=== PATIENT | male | born 1940 | race Caucasian/White ===

== ENCOUNTER 2017-01-29 17:27 | Inpatient (IN) | payer MEDICARE, OTHER ==
[~2017-01-29] VITALS: Ht 185.4 cm; Wt 67.5 kg
[~2017-01-29 17:27] MED LIST: DIGO0.25 PO; LACT10SO48 PO; LINA290C PO; LIPI20TA PO; MIRTA15 PO; NEXI40CA PO; NIFE1TAB85 PO; OLAN2.5 PO; VITA500S3 PO
[2017-01-29 17:34] VITALS: BP 176/84; TEMP 97.8; O2SAT 98
--- NOTE | 2017-01-29 17:45 | PD ---
HPI Chief Complaint: psychiatric evaluation Time Seen by Provider: 17:31 Travel History International Travel<30 days: No Contact w/Intl Traveler<30days: No History of Present Illness HPI 76-year-old male presents to the emergency department via EMS. Apparently, the patient was placed in a nursing facility today. Upon being in the facility for approximately 20 minutes, he became agitated and aggressive. He was then sent for psychiatric evaluation. Patient has a DCF investigative worker at bedside. According to her, the patient has been violent at home and has been waving a gun around and his is afraid of him. Therefore, they got him placed in a facility today. However, upon arrival to the facility, he had another violent outburst. He has history of dementia according to the account collector. The patient himself has no complaints other than complaining of bilateral ankle swelling that has been ongoing for 2-1/2 months. When I asked him if he came from facility, he states that he lives at home. He does answer my questions appropriately and is alert and oriented to person, place, time. He denies any fevers or chills. No headache. No chest pain or shortness of breath. No abdominal pain. No nausea, vomiting, diarrhea. Take that when he wakes up in the morning, his ankle swelling is gone. However, after he has been on his feet all day, he notices the swelling has returned. No exacerbating or alleviating factors. PFSH Past Medical History Cancer: No (Patient denies) Cerebrovascular Accident: Yes Coronary Artery Disease: Yes Endocrine: No Gastrointestinal Disorders: Yes (GERD, ULCER HX, NAUSEA) Genitourinary: Yes (BLADDER "PUMP"--MUST TURN OFF DEVICE PRIOR TO CATHETERIZATION) Hepatitis: No Hiatal Hernia: Yes (WITH REPAIR X 2) Hypertension: Yes Immune Disorder: No Musculoskeletal: Yes (ARTHRITIS) Neurologic: Yes (RICARDO CARPAL TUNNEL SYNDROME, PERIPHERAL NEUROPATHY) Reproductive: No Respiratory: Yes Thyroid Disease: No Past Surgical History AICD: No Cardiac Surgery: Yes (CABG 1997, PACEMAKER 2001,2008) Eye Surgery: Yes (RICARDO. CATARACT SX) Genitourinary Surgery: Yes (BLADDER "PUMP") Joint Replacement: No Neurologic Surgery: Yes (LUMER LAMINECTOMY) Oral Surgery: Yes (EXCISION OF BENIGN ESOPHAGEAL TUMOR) Pacemaker: Yes Thoracic Surgery: No Other Surgery: Yes Social History Alcohol Use: No Tobacco Use: Yes (occ) Substance Use: No Allergies-Medications (Allergen,Severity, Reaction): Coded Allergies: amiodarone (Verified Adverse Reaction, Intermediate, Dizziness, 01/29/17) ibuprofen (Verified Adverse Reaction, Intermediate, TOLD NOT TO TAKE BY PROFESSIONAL ADVISOR, 01/29/17) Reported Meds & Prescriptions Reported Meds & Active Scripts Active Reported Mirtazapine 15 Mg Tab 15 Mg PO HS Eliquis (Apixaban) 2.5 Mg Tab 2.5 Mg PO BID Zantac (Ranitidine HCl) 300 Mg Tab 300 Mg PO DAILY Ziprasidone 40 Mg Cap 40 Mg PO BID Xanax (Alprazolam) 0.5 Mg Tab 0.5 Mg PO BID PRN Atorvastatin (Atorvastatin Calcium) 20 Mg Tab 20 Mg PO HS Losartan (Losartan Potassium) 25 Mg Tab 25 Mg PO DAILY Metoprolol Tartrate 50 Mg Tab 50 Mg PO DAILY Review of Systems Except as stated in HPI: all other systems reviewed are Neg Physical Exam Narrative GENERAL: Well-nourished, well-developed male patient, ambulatory. Afebrile. Patient is alert and oriented to person, place, time. SKIN: Focused skin assessment warm/dry. HEAD: Normocephalic. Atraumatic. EYES: No scleral icterus. No injection or drainage. NECK: Supple, trachea midline. No JVD or lymphadenopathy. CARDIOVASCULAR: Regular rate and rhythm without murmurs, gallops, or rubs. Bilateral radial and pedal pulses are 2+. RESPIRATORY: Breath sounds equal bilaterally. No accessory muscle use. Lungs sounds are clear to auscultation. GASTROINTESTINAL: Abdomen soft, non-tender, nondistended. MUSCULOSKELETAL: No cyanosis. Patient has 1-2+ edema to the bilateral ankles. He denies any associated pain. BACK: Nontender without obvious deformity. No CVA tenderness. Data Data Last Documented VS Vital Signs Date Time Temp Pulse Resp B/P (MAP) Pulse Ox O2 Delivery O2 Flow Rate FiO2 01/29/17 18:57 71 18 165/74 (104) 97 Room Air 01/29/17 17:34 97.8 Orders Orders Complete Blood Count With Diff (01/29/17 17:43) Comprehensive Metabolic Panel (01/29/17 17:43) Urinalysis - C+S If Indicated (01/29/17 17:43) Psych Screen (01/29/17 17:43) Drug Screen, Random Urine (01/29/17 17:43) Alcohol (Ethanol) (01/29/17 17:43) B-Type Natriuretic Peptide (01/29/17 17:43) Chest, Single Ap (01/29/17 ) Blood Culture (01/29/17 20:40) Azithromycin (Zithromax) (01/29/17 20:45) Labs Laboratory Tests Test 01/29/17 17:10 01/29/17 17:50 Urine Color LIGHT-YELLOW Urine Turbidity CLEAR Urine pH 6.0 Urine Specific [place] 1.007 Urine Protein 30 mg/dL Urine Glucose (UA) NEG mg/dL Urine Ketones NEG mg/dL Urine Occult Blood NEG Urine Nitrite NEG Urine Bilirubin NEG Urine Urobilinogen LESS THAN 2.0 MG/DL Urine Leukocyte Esterase NEG Urine RBC 1 /hpf Urine WBC 1 /hpf Urine Hyaline Casts 3 /lpf Microscopic Urinalysis Comment CULT NOT INDICATED Urine Opiates Screen NEG Urine Barbiturates Screen NEG Urine Amphetamines Screen NEG Urine Benzodiazepines Screen POS Urine Cocaine Screen NEG Urine Cannabinoids Screen NEG White Blood Count 8.2 TH/MM3 Red Blood Count 3.46 MIL/MM3 Hemoglobin 10.9 GM/DL Hematocrit 32.8 % Mean Corpuscular Volume 94.8 FL Mean Corpuscular Hemoglobin 31.5 PG Mean Corpuscular Hemoglobin Concent 33.2 % Red Cell Distribution Width 14.6 % Platelet Count 135 TH/MM3 Mean Platelet Volume 8.9 FL Neutrophils (%) (Auto) 62.5 % Lymphocytes (%) (Auto) 21.0 % Monocytes (%) (Auto) 9.1 % Eosinophils (%) (Auto) 6.5 % Basophils (%) (Auto) 0.9 % Neutrophils # (Auto) 5.1 TH/MM3 Lymphocytes # (Auto) 1.7 TH/MM3 Monocytes # (Auto) 0.8 TH/MM3 Eosinophils # (Auto) 0.5 TH/MM3 Basophils # (Auto) 0.1 TH/MM3 CBC Comment DIFF FINAL Differential Comment Blood Urea Nitrogen 32 MG/DL Creatinine 1.95 MG/DL Random Glucose 95 MG/DL Total Protein 8.5 GM/DL Albumin 4.4 GM/DL Calcium Level 8.9 MG/DL Alkaline Phosphatase 120 U/L Aspartate Amino Transf (AST/SGOT) 20 U/L Alanine Aminotransferase (ALT/SGPT) 24 U/L Total Bilirubin 1.2 MG/DL Sodium Level 136 MEQ/L Potassium Level 4.4 MEQ/L Chloride Level 103 MEQ/L Carbon Dioxide Level 23.6 MEQ/L Anion Gap 9 MEQ/L Estimat Glomerular Filtration Rate 34 ML/MIN B-Type Natriuretic Peptide 522 PG/ML Ethyl Alcohol Level LESS THAN 3 MG/DL MDM Medical Decision Making Medical Screen Exam Complete: Yes Emergency Medical Condition: Yes Medical Record Reviewed: Yes Interpretation(s) Last Impressions Chest X-Ray 01/29/17 0000 Signed Impressions: Service Date/Time: Sunday, January 29, 2017 18:20 - CONCLUSION: 1. Patchy infiltrates in medial right lower lung. 2. 6 mm nodule in the right upper lung. Recommend requesting an archival retrieval of prior chest x-ray in 2011 to see whether this is a new or old finding. Sascha Johnson MD Differential Diagnosis Dementia versus depression versus benign edema versus electrolyte abnormality versus UTI Narrative Course 76-year-old male presents to the emergency department via EMS after being in a new nursing facility for 20 minutes and having a violent outburst. The patient believes he is here because his ankles have been swelling intermittently for the past 2-1/2 months. He appears well on my exam. His account collector at bedside states that his is afraid of him. CBC, CMP, urine drug screen, alcohol level, BNP, chest x-ray, UA are ordered and pending. CBC shows no acute abnormality. CMP shows elevated BUN and creatinine of 32/ 1.95.. BNP is 522. Alcohol level is less than 3. UDS is positive for benzodiazepine. UA is negative for acute infection. Chest x-ray shows patchy infiltrates the medial right lower lung, 6 mm nodule in the right upper lung. I discussed the case with attending physician, Dr. Maloney. Blood cultures 2 are ordered. Patient is given azithromycin 500 mg by mouth. Patient is medically cleared for psychiatric screening and disposition. Patient will need prescription for azithromycin upon discharge. Diagnosis Primary Impression: Dementia with behavioral disturbance Qualified Codes: F03.91 - Unspecified dementia with behavioral disturbance Additional Impression: Pneumonia Qualified Codes: J18.1 - Lobar pneumonia, unspecified organism Referrals: Primary Care Physician call for appointment Condition: Stable Sapna Og ELBERT Jan 29, 2017 17:45
[2017-01-29 18:36] LABS: AUTOMATED NEUTROPHIL # 5.1 TH/MM3 (1.8-7.7); BASOPHIL # 0.1 TH/MM3 (0-0.2); BASOPHIL % 0.9 % (0.0-2.0); EOSINOPHIL # 0.5 TH/MM3 (0-0.4); EOSINOPHIL % 6.5 % (0.0-4.0); HEMATOCRIT 32.8 % (39.0-51.0); HEMO FLAGS DIFF FINAL; LYMPHOCYTE # 1.7 TH/MM3 (1.0-4.8); MEAN CELL VOLUME 94.8 FL (80.0-100.0); MEAN CORPUSCULAR HEMOGLOBIN 31.5 PG (27.0-34.0); MEAN CORPUSCULAR HGB CONC 33.2 % (32.0-36.0); MONO % 9.1 % (0.0-8.0); NEUT % 62.5 % (16.0-70.0); PLATELET COUNT 135 TH/MM3 (150-450); RED BLOOD COUNT 3.46 MIL/MM3 (4.50-5.90); RED CELL DISTRIBUTION WIDTH 14.6 % (11.6-17.2); WHITE BLOOD COUNT 8.2 TH/MM3 (4.0-11.0)
[2017-01-29 18:37] LABS: BLOOD, URINE NEG (NEG); COMMENT (UR) CULT NOT INDICATED; CULTURE IF INDICATED CULT NOT INDICATED; GLUCOSE,URINE NEG (NEG); HYALINE CAST, URINE 3 /lpf (RARE); KETONE, URINE NEG (NEG); NITRITE,URINE NEG (NEG); URINE COLOR LIGHT-YELLOW (YELLW/STRAW)
--- NOTE | 2017-01-29 18:40 | RADRPT ---
EXAM DATE/TIME: 01/29/2017 18:20 [place] COMPARISON: No previous studies available for comparison. The patient has had a prior chest x-ray at this [facility] in 2011, but is not available for review at this time. INDICATIONS : Lower extremity swelling on and off for 1 week. MEDICAL HISTORY : Hypertension. Gastroesophageal reflux disease. Hernia, hiatal. Cataracts, bilateral. Esophageal tumor , benign. Bilateral carpal tunnel. Lumbago. Headache. Seizures. Peripheral neuropathy.Coronary artery disease. Asthma. Ulcer. Depression. Stroke. SURGICAL HISTORY : CABG. Pacemaker. Bladder pump. Bilateral catract removal. Removal of benign esophageal tumor. Bilater al carpal tunnel repair. Lumbar laminectomy. Cardiac catheter. ENCOUNTER: Initial ACUITY: 1 week PAIN SCORE: 0/10 LOCATION: Bilateral chest FINDINGS: There are patchy non-consolidative infiltrates in the medial right lower lung without loss of delinea tion of the right heart border or right hemidiaphragm. The left lung is clear. 6 mm nodule in the r ight upper lobe. The patient is rotated towards the left. Prior median sternotomy with intact martin al wire sutures. Cardiac pacer with 2 leads. CONCLUSION: 1. Patchy infiltrates in medial right lower lung. 2. 6 mm nodule in the right upper lung. Recommend requesting an archival retrieval of prior chest x- ray in 2011 to see whether this is a new or old finding. Sascha Johnson MD on January 29, 2017 at 18:36 Board Certified Radiologist. This report was verified electronically.
[2017-01-29] MEDS ORDERED: MIRTA15 PO (18:49)
[2017-01-29] MEDS ORDERED: ALPR.5 PO (18:49)
[2017-01-29] MEDS ORDERED: APIX2.5T PO (18:49)
[2017-01-29] MEDS ORDERED: METO50TA PO (18:49)
[2017-01-29] MEDS ORDERED: ZIPR1CAP8 PO (18:49)
[2017-01-29] MEDS ORDERED: LOSA25TA PO (18:49)
[2017-01-29] MEDS ORDERED: ATOR20TA15 PO (18:49)
[2017-01-29] MEDS ORDERED: ZANT300T PO (18:49)
[2017-01-29 18:57] VITALS: BP 165/74; PULSE 71; RESP 18; O2SAT 97
[2017-01-29 18:57] LABS: ANION GAP 9 MEQ/L (5-15); AST (GOT) 20 U/L (15-37); BICARBONATE 23.6 MEQ/L (21.0-32.0); BLOOD UREA NITROGEN 32 MG/DL (7-18); CHLORIDE 103 MEQ/L (98-107); GLOMERULAR FILTRATION RATE 34 ML/MIN (>89); POTASSIUM 4.4 MEQ/L (3.5-5.1); SODIUM (NA) 136 MEQ/L (136-145)
[2017-01-29 18:58] LABS: ALT (GPT) 24 U/L (12-78)
[2017-01-29 18:59] LABS: ALCOHOL LESS THAN 3 MG/DL (0-5)
[2017-01-29 19:00] LABS: ALKALINE PHOSPHATASE 120 U/L (45-117); TOTAL BILIRUBIN ADULT 1.2 MG/DL (0.2-1.0)
[2017-01-29] MEDS ORDERED: AZITHROMYCIN 250 MG TAB PO ONE (20:45)
[2017-01-29 23:15] VITALS: BP 154/68; PULSE 68; RESP 18; O2SAT 97
[2017-01-30] MEDS ORDERED: diphenhydrAMINE HCL 50 MG CAP PO PRN
[2017-01-30 00:30] VITALS: BP 178/83; PULSE 69; RESP 18; TEMP 97.1; O2SAT 98
[2017-01-30] MEDS ORDERED: diphenhydrAMINE HCL 50 MG CAP - HS PRN PO ×2 (02:00→23:45)
[2017-01-30] MEDS ORDERED: hydrOXYzine HCL 50 MG TAB PO PRN ×3 (04:45→23:45)
[2017-01-30] MEDS ORDERED: traZODone HCL 50 MG TAB PO PRN ×2 (04:45→23:45)
[2017-01-30] MEDS ORDERED: LORazepam 0.5 MG TAB age > 65 yrs PO PRN ×2 (05:00→23:45)
[2017-01-30] MEDS ORDERED: LORazepam 2 MG/ML VIAL - age > 65 yrs IM PRN ×3 (05:00→23:45)
[2017-01-30 05:32] VITALS: BP 178/87; PULSE 69; RESP 17; TEMP 97.7; O2SAT 96
[2017-01-30 06:23] VITALS: BP 195/86; PULSE 70
[2017-01-30] MEDS ORDERED: METOPROLOL TARTRATE 50 MG TAB PO SCH ×2 (06:45→09:00)
[2017-01-30] MEDS: clonazePAM 0.5 MG TAB PO SCH ×2 (08:31→21:06)
[2017-01-30] MEDS: ZIPRASIDONE HCL 40 MG CAP PO SCH ×2 (08:31→21:06)
[2017-01-30] MEDS: LOSARTAN 25 MG TAB PO SCH (08:31)
[2017-01-30] MEDS: NICOTINE 21 MG/24 HR PATCH T-DERMAL SCH (09:00)
[2017-01-30] MEDS ORDERED: FAMOTIDINE 20 MG TAB PO SCH (09:00)
[2017-01-30] MEDS: APIXABAN 2.5 MG TABLET PO SCH ×2 (09:53→21:05)
[2017-01-30 10:09] VITALS: BP 183/86; PULSE 69
[2017-01-30] MEDS ORDERED: cloNIDine HCL 0.1 MG TAB PO PRN ×2 (11:00→17:00)
[2017-01-30] MEDS: ACETAMINOPHEN 325 MG TAB PO PRN ×2 (11:05→15:09)
[2017-01-30] MEDS ORDERED: PILL SPLITTER OTHER PRN (11:15)
--- NOTE | 2017-01-30 11:22 | HHI.HP ---
Provisional Diagnosis Admission Date Jan 29, 2017 at 23:45 [place]. Dimension other diseases FiO2 0.81, a vascular dementia f01.51 Certification of Person's Competence To Provide Express and Informed Consent I have personally examined Erlin Galloway , a person being served at [facility] on, Jan 30, 2017 11:02. Express and informed consent means consent voluntarily given in writing, by a competent person, after sufficient explanation and disclosure of the subject matter involved to enable the person to make a knowing and willful decision without any element of force, fraud, deceit, duress, or other form of constraint or coercion. This person is 18 years of age or older, is not now known to be incompetent to consent to treatment with a guardian advocate, and does not have a health care surrogate or proxy currently making medical treatment decisions. I have found this person to be one of the following: [] Competent to provide express and informed consent, as defined above, for voluntary admission to this facility and is competent to provide express and informed consent for treatment. He/she has the consistent capacity to make well reasoned, willful, and knowing decisions concerning his or her medical or mental health treatment. The person fully and consistently understands the purpose of the admission for examination/placement and is fully capable of personally exercising all rights assured under [place]xxx] Incompetent to provide express and informed consent to voluntary admission , and this is incompetent to provide express and informed consent to treatment. The person must be transferred to involuntary status and a petition for a guardian advocate filed with the Circuit Court. [] Refusing to provide express and informed consent to voluntary admission but is competent to provide express and informed consent for treatment. The person must be discharged or transferred to involuntary status. Form shall be completed within 24 hours of a person's arrival at the receiving facility and filed in the clinical record of each person: 1. Admitted on a voluntary basis 2. Permitted to provide express and informed consent to his/her own treatment 3. Allowed to transfer from involuntary to voluntary status 4. Prior to permitting a person to consent to his or her own treatment after having been previously found incompetent to consent to treatment. History of Present Illness Capacity: Lacks Capacity Psych Chief Complaint: confusion with increased aggressive behavior HPI He should is a 76-year-old white male who comes to the ED under a Lacey act signed by Lorie Maloney D.O. dated 01/29/17 11:36 PM stating depression patient up here early had undergone at his house he has a gun at home and with his gun today and threatened to shoot everyone that comes into his home patient seen screened in the ED urine toxicology positive for benzodiazepines. At the present time patient sitting quietly in his chair in the day room nurse Erasto present throughout the session. Patient is alert white male appears stated age , he is oriented to person somewhat vague initially about what hospital this is and its location he states he was at home. He states he does have permits for weapons. That he was unloading a weapon in anticipation of going to a dinner at of family members house today. He denies any suicidality homicidality voices or visions. He denies having any harmful f thoughts towards his . 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 Leading to some changes in his vocalization, and having significant visual problems in his left eye. Review of EMR it appears patient was hospitalized here 08/22/15 through under visit [phone] under Dr. Basilio Pena with diagnosis of major depression. He was discharged back home with that. It is unclear if he had any further psychiatric contact or treatment since then. Though reviewing the medical reconciliation various psychotropic medications documented. He denies any alcohol or drug use. States he had his last drink a number of years ago. Though he denies any misuse of alcohol or other drugs. He has been for about 40 years this the second marriage for both of them. Their adult children by each relationship. In any event at this time was be for may be construed as a sequelae to his multiple CVAs as a vascular type dementia. Though he is fairly well oriented. He does have a history of depression that needs to be taken into consideration also. At this time we will continue his medications per the EMR. Will attempt to reach patient's to get further information about this gentleman. He is a he has served in both the [employer] and the [employer]. He denies any physical or sexual abuse. Denies any mental health history in his family of origin Review of Systems Constitutional: DENIES: Diaphoretic episodes, Fatigue, Fever, Weight gain, Weight loss, Chills, Dizziness, Change in appetite, Night Sweats Endocrine: DENIES: Heat/cold intolerance, Polydipsia, Polyuria, Polyphagia Eyes: COMPLAINS OF: Vision loss (secondary to CVA), DENIES: Blurred vision, Diplopia, Eye inflammation, Eye pain, Photosensitivity, Double Vision Ears, nose, mouth, throat: DENIES: Tinnitus, Hearing loss, Vertigo, Nasal discharge, Oral lesions, Throat pain, Hoarseness, Ear Pain, Running Nose, Epistaxis, Sinus Pain, Toothache, Odynophagia Respiratory: DENIES: Apneas, Cough, Snoring, Wheezing, Hemoptysis, Sputum production, Shortness of breath Cardiovascular: DENIES: Chest pain, Palpitations, Syncope, Dyspnea on Exertion , PND, Lower Extremity Edema, Orthopnea, Claudication Gastrointestinal: DENIES: Abdominal pain, Black stools, Bloody stools, Constipation, Diarrhea, Nausea, Vomiting, Difficulty Swallowing, Anorexia Genitourinary: DENIES: Sexual dysfunction, Urinary frequency, Urinary incontinence, Urgency, Hematuria, Dysuria, Nocturia, Penile Discharge, Testicular Pain, Testicular Swelling Musculoskeletal: DENIES: Joint pain, Muscle aches, Stiffness, Joint Swelling, Back pain, Neck pain Integumentary: DENIES: Abnormal pigmentation, Nail changes, Pruritus, Rash Hematologic/lymphatic: DENIES: Bruising, Lymphadenopathy Immunologic/allergic: DENIES: Eczema, Urticaria Neurologic: DENIES: Abnormal gait, Headache, Localized weakness, Paresthesias, Seizures, Speech Problems, Tremor, Poor Balance Psychiatric: COMPLAINS OF: Depression, Suicidal Ideation (vague) Past Psych History Psychological trauma history Denies Violence risk - others (6 mos) Patient did we've firearm and presence of his Violence risk - self (6 mos) Denies suicidality Substance Abuse History Drugs/Alcohol past 12 months Denies alcohol or drug use Past Family Social History Coded Allergies: amiodarone (Verified Adverse Reaction, Intermediate, Dizziness, 01/29/17) ibuprofen (Verified Adverse Reaction, Intermediate, TOLD NOT TO TAKE BY SURGICAL BRACE MAKER, 01/29/17) Past Medical History Multiple. See MedSurg Reported Medications Mirtazapine (Mirtazapine) 15 Mg Tab, 15 MG PO HS for Depression Control, #30 TAB 0 Refills 01/29/17 Apixaban (Eliquis) 2.5 Mg Tab, 2.5 MG PO BID for Blood Clot Prevention, TAB 0 Refills 01/29/17 Ranitidine (Zantac) 300 Mg Tab, 300 MG PO DAILY, TAB 0 Refills 01/29/17 Ziprasidone (Ziprasidone) 40 Mg Cap, 40 MG PO BID, #60 CAP 0 Refills 01/29/17 Alprazolam (Xanax) 0.5 Mg Tab, 0.5 MG PO BID Y for ANXIETY, TAB 0 Refills 01/29/17 Atorvastatin (Atorvastatin) 20 Mg Tab, 20 MG PO HS for Cholesterol Management, # 30 TAB 0 Refills 01/29/17 Losartan (Losartan) 25 Mg Tab, 25 MG PO DAILY for Blood Pressure Management, # 30 TAB 0 Refills 01/29/17 Metoprolol Tartrate (Metoprolol Tartrate) 50 Mg Tab, 50 MG PO DAILY, #30 TAB 0 Refills 01/29/17 Current Medications Medications (Trade) Dose Ordered Sig/Chip Route Start Time Stop Time Status Last Admin (Benadryl) 50 mg Q6H PRN PO 01/30/17 00:00 01/30/17 01:54 (Benadryl Inj) 50 mg Q6H PRN IM 01/30/17 23:45 (Cogentin) 1 mg Q12H PRN PO 01/30/17 23:45 (Cogentin Inj) 1 mg Q12H PRN IM 01/30/17 23:45 (Benadryl Inj) 50 mg HS PRN IM 01/30/17 23:45 (Tylenol) 650 mg Q4H PRN PO 01/30/17 23:45 (Milk Of Magnesia Liq) 30 ml DAILY PRN PO 01/30/17 23:45 (Mag-Al Plus Susp Liq) 30 ml Q6H PRN PO 01/30/17 23:45 (Habitrol 21 Mg Patch.24 Hr) 1 patch DAILY T-DERMAL 01/30/17 09:00 Miscellaneous Information 1 HS T-DERMAL 01/30/17 21:00 (KlonoPIN) 0.5 mg BID PO 01/30/17 09:00 01/30/17 08:31 (Cozaar) 25 mg DAILY PO 01/30/17 09:00 01/30/17 08:31 (Lipitor) 20 mg HS PO 01/30/17 21:00 (Geodon) 40 mg BID PO 01/30/17 09:00 01/30/17 08:31 (Pepcid) 20 mg BID PO 01/30/17 09:00 01/30/17 08:31 (Eliquis) 2.5 mg BID PO 01/30/17 09:00 01/30/17 09:53 (Remeron) 15 mg HS PO 01/30/17 21:00 (Benadryl) 50 mg HS PRN PO 01/30/17 02:00 (Atarax) 50 mg Q6H PRN PO 01/30/17 04:45 01/30/17 05:10 (Desyrel) 50 mg HS PRN PO 01/30/17 04:45 (Ativan Inj) 0.5 mg Q12H PRN IM 01/30/17 05:00 (Ativan Inj) 0.5 mg Q12H PRN IM 01/30/17 05:00 (Ativan) 0.5 mg Q12H PRN PO 01/30/17 05:00 (Lopressor) 50 mg DAILY PO 01/31/17 09:00 Family Psych History Denies mental health issues and family Social History for 40+ years to his . They have adult children by prior relationships Patient's Strengths (min. 2) Patient verbal irritable access healthcare appears her supportive family Physical Exam Should seen screened and medically cleared in ED at this time patient sitting in the chair in dayroom in no acute distress, he is in no respiratory distress. No complaints of abdominal pain. Patient moves all 4 extremities without difficulty. No abnormal motor movements noted though voices somewhat gravelly that he states is secondary to his CVAs Vital Signs Vital Signs Date Time Temp Pulse Resp B/P (MAP) Pulse Ox O2 Delivery O2 Flow Rate FiO2 01/30/17 10:09 69 183/86 (118) 01/30/17 05:32 97.7 17 96 01/29/17 23:15 Room Air Lab Results Test 01/29/17 17:10 01/29/17 17:50 Urine Color LIGHT-YELLOW Urine Turbidity CLEAR Urine pH 6.0 Urine Specific [place] 1.007 Urine Protein 30 mg/dL Urine Glucose (UA) NEG mg/dL Urine Ketones NEG mg/dL Urine Occult Blood NEG Urine Nitrite NEG Urine Bilirubin NEG Urine Urobilinogen LESS THAN 2.0 MG/DL Urine Leukocyte Esterase NEG Urine RBC 1 /hpf Urine WBC 1 /hpf Urine Hyaline Casts 3 /lpf Microscopic Urinalysis Comment CULT NOT INDICATED Urine Opiates Screen NEG Urine Barbiturates Screen NEG Urine Amphetamines Screen NEG Urine Benzodiazepines Screen POS Urine Cocaine Screen NEG Urine Cannabinoids Screen NEG White Blood Count 8.2 TH/MM3 Red Blood Count 3.46 MIL/MM3 Hemoglobin 10.9 GM/DL Hematocrit 32.8 % Mean Corpuscular Volume 94.8 FL Mean Corpuscular Hemoglobin 31.5 PG Mean Corpuscular Hemoglobin Concent 33.2 % Red Cell Distribution Width 14.6 % Platelet Count 135 TH/MM3 Mean Platelet Volume 8.9 FL Neutrophils (%) (Auto) 62.5 % Lymphocytes (%) (Auto) 21.0 % Monocytes (%) (Auto) 9.1 % Eosinophils (%) (Auto) 6.5 % Basophils (%) (Auto) 0.9 % Neutrophils # (Auto) 5.1 TH/MM3 Lymphocytes # (Auto) 1.7 TH/MM3 Monocytes # (Auto) 0.8 TH/MM3 Eosinophils # (Auto) 0.5 TH/MM3 Basophils # (Auto) 0.1 TH/MM3 CBC Comment DIFF FINAL Differential Comment Blood Urea Nitrogen 32 MG/DL Creatinine 1.95 MG/DL Random Glucose 95 MG/DL Total Protein 8.5 GM/DL Albumin 4.4 GM/DL Calcium Level 8.9 MG/DL Alkaline Phosphatase 120 U/L Aspartate Amino Transf (AST/SGOT) 20 U/L Alanine Aminotransferase (ALT/SGPT) 24 U/L Total Bilirubin 1.2 MG/DL Sodium Level 136 MEQ/L Potassium Level 4.4 MEQ/L Chloride Level 103 MEQ/L Carbon Dioxide Level 23.6 MEQ/L Anion Gap 9 MEQ/L Estimat Glomerular Filtration Rate 34 ML/MIN B-Type Natriuretic Peptide 522 PG/ML Ethyl Alcohol Level LESS THAN 3 MG/DL Mental Status Examination Appearance: Appropriate Consciousness: Alert Orientation: Person, Place (somewhat confusing thinking was in [place]), Date/ Time Motor Activity: Normal gait Speech: Unremarkable Language: Adequate Fund of Knowledge: Adequate Attention and Concentration: Adequate Memory: Unremarkable (fair) Mood: Sad, Irritable (loudly) Thought Process & Associations: Circumstantial, Tangential Thought Content: Appropriate Hallucination Type: None Delusion Type: None (denies denies) Suicidal Ideation: No (denies) Suicidal Plan: No (denies) Suicidal Intention: No (denies) Homicidal Ideation: No Homicidal Plan: No Homicidal Intention: No Insight: Poor Judgment: Poor Assessment & Plan Problem List: (1) DEMENTIA IN OTH DISEASES CLASSD ELSWHR W BEHAVIORAL DISTURB ICD Codes: F02.81 - DEMENTIA IN OTH DISEASES CLASSD ELSWHR W BEHAVIORAL DISTURB (2) Vascular dementia ICD Codes: F01.50 - Vascular dementia without behavioral disturbance Assessment & Plan Estimated LOS: days Asians somewhat mildly confused. Her mood also appears somewhat sad. At this time patient does meet criteria for further psychiatric assessment the Lacey act I'll do first opinion request second opinion and have questions related to his capacity also ask for healthcare surrogate and guardian advocate. Patient per the med reconciliation. Attempted to reach patient's 5 to arrange for a family meeting the next 24 hours Discharge Planning Hopefully patient to return home with his Request HC Surrog/Guard Advoc?: Yes Problem Qualifiers (1) Vascular dementia: Qualified Codes: F01.51 - Vascular dementia with behavioral disturbance Jesse Amado MD Jan 30, 2017 11:22
[2017-01-30 12:21] LABS: ANION GAP 6 MEQ/L (5-15); BICARBONATE 26.7 MEQ/L (21.0-32.0); BLOOD UREA NITROGEN 31 MG/DL (7-18); CHLORIDE 103 MEQ/L (98-107); GLOMERULAR FILTRATION RATE 40 ML/MIN (>89); POTASSIUM 4.2 MEQ/L (3.5-5.1); SODIUM (NA) 136 MEQ/L (136-145)
[2017-01-30 12:25] LABS: HDL CHOLESTEROL 67.6 MG/DL (40.0-60.0); LDL CHOLESTEROL 47 MG/DL (0-99)
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
[2017-01-30 14:00] VITALS: BP 146/71; PULSE 90; RESP 18
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
[2017-01-30] MEDS ORDERED: hydrALAZINE HCL 10 MG TAB PO PRN (15:30)
[2017-01-30 16:40] VITALS: BP 140/70; PULSE 70; RESP 17; TEMP 98.6; O2SAT 100
[2017-01-30] MEDS ORDERED: ATORVASTATIN 20 MG TAB PO SCH ×2 (21:00)
[2017-01-30] MEDS ORDERED: REMOVE OLD NICOTINE PATCH T-DERMAL SCH (21:00)
[2017-01-30] MEDS ORDERED: MIRTAZAPINE 15 MG TAB PO SCH ×2 (21:00)
[2017-01-30] MEDS ORDERED: APIXABAN 2.5 MG TABLET PO SCH (21:00)
[2017-01-30] MEDS ORDERED: ZIPRASIDONE HCL 40 MG CAP PO SCH (21:00)
[2017-01-30] MEDS: FAMOTIDINE 20 MG TAB PO SCH (21:05)
[2017-01-30] MEDS: AZITHROMYCIN 250 MG TAB PO SCH (21:21)
[2017-01-30] MEDS ORDERED: ALUMINUM/MAGNESIUM/SIMETH 30 ML CUP PO PRN (23:45)
[2017-01-30] MEDS ORDERED: MAGNESIUM HYDROXIDE SUSP 30 ML CUP PO PRN (23:45)
[2017-01-30] MEDS ORDERED: diphenhydrAMINE HCL 50 MG/ML VIAL - HS PRN IM (23:45)
[2017-01-30] MEDS ORDERED: diphenhydrAMINE HCL 50 MG/ML VIAL IM PRN (23:45)
[2017-01-30] MEDS ORDERED: BENZTROPINE MESYLATE 1 MG TAB PO PRN (23:45)
[2017-01-30] MEDS ORDERED: BENZTROPINE MESYLATE 2 MG/2 ML VIAL IM PRN (23:45)
[2017-01-31 05:37] VITALS: BP 181/81; PULSE 70; RESP 16; TEMP 97.5; O2SAT 97
[2017-01-31] MEDS: APIXABAN 2.5 MG TABLET PO SCH (08:23)
[2017-01-31] MEDS: FAMOTIDINE 20 MG TAB PO SCH (08:24)
[2017-01-31] MEDS: LOSARTAN 25 MG TAB PO SCH (08:24)
[2017-01-31] MEDS: clonazePAM 0.5 MG TAB PO SCH (08:24)
[2017-01-31] MEDS: ZIPRASIDONE HCL 40 MG CAP PO SCH (08:24)
[2017-01-31] MEDS: AZITHROMYCIN 250 MG TAB PO SCH (08:25)
[2017-01-31] MEDS ORDERED: METOPROLOL TARTRATE 50 MG TAB PO SCH ×2 (09:00)
[2017-01-31] MEDS ORDERED: LOSARTAN 25 MG TAB PO SCH (09:00)
[2017-01-31] MEDS: NICOTINE 21 MG/24 HR PATCH T-DERMAL SCH (09:00)
[2017-01-31 09:28] LABS: BICARBONATE 28.2 MEQ/L (21.0-32.0); POTASSIUM 4.4 MEQ/L (3.5-5.1)
--- NOTE | 2017-01-31 11:12 | HHI.PYPN ---
Subjective Chief Complaint: confusion with increased aggressive behavior Remarks Patient seen in day room with nurse Erasto, patient calm to somewhat anxious with me. States he slept for a couple of hours. He still is confused about his being here. States his wants home. I attempted to call patient's just now. There is no answer perhaps she is coming in for visitation. For now continue treatment Review of Systems Except as stated in HPI: all other systems reviewed are Neg Mental Status Examination Appearance: Appropriate Consciousness: Alert Orientation: Person, Place (somewhat confusing thinking was in [place]), Date/ Time Motor Activity: Normal gait Speech: Unremarkable Language: Adequate Fund of Knowledge: Adequate Attention and Concentration: Adequate Memory: Unremarkable (fair) Mood: Irritable (loudly) Affect: Irritable Thought Process & Associations: Circumstantial, Tangential Thought Content: Appropriate Hallucination Type: None Delusion Type: None (denies denies) Suicidal Ideation: No (denies) Suicidal Plan: No (denies) Suicidal Intention: No (denies) Homicidal Ideation: No Homicidal Plan: No Homicidal Intention: No Insight: Poor Judgment: Poor Results Labs Test 01/30/17 11:33 01/31/17 08:35 Blood Urea Nitrogen 31 MG/DL 27 MG/DL Creatinine 1.69 MG/DL 1.70 MG/DL Random Glucose 142 MG/DL 211 MG/DL Calcium Level 9.1 MG/DL 9.3 MG/DL Sodium Level 136 MEQ/L 137 MEQ/L Potassium Level 4.2 MEQ/L 4.4 MEQ/L Chloride Level 103 MEQ/L 103 MEQ/L Carbon Dioxide Level 26.7 MEQ/L 28.2 MEQ/L Anion Gap 6 MEQ/L 6 MEQ/L Estimat Glomerular Filtration Rate 40 ML/MIN 39 ML/MIN Triglycerides Level 54 MG/DL Cholesterol Level 125 MG/DL LDL Cholesterol 47 MG/DL HDL Cholesterol 67.6 MG/DL Cholesterol/HDL Ratio 1.84 RATIO Date/Time Source Procedure Growth Status 01/30/17 11:36 Blood Peripheral Aerobic Blood Culture - Preliminary NO GROWTH IN 1 DAY Resulted 01/30/17 11:36 Blood Peripheral Anaerobic Blood Culture - Preliminary NO GROWTH IN 1 DAY Resulted Vitals/IOs Vital Signs Date Time Temp Pulse Resp B/P (MAP) Pulse Ox O2 Delivery O2 Flow Rate FiO2 01/31/17 05:37 97.5 70 16 181/81 (114) 97 01/29/17 23:15 Room Air Assessment & Plan Problem List: (1) DEMENTIA IN OTH DISEASES CLASSD ELSWHR W BEHAVIORAL DISTURB ICD Codes: F02.81 - DEMENTIA IN OTH DISEASES CLASSD ELSWHR W BEHAVIORAL DISTURB (2) Vascular dementia ICD Codes: F01.50 - Vascular dementia without behavioral disturbance Assessment & Plan Estimated LOS: days patient to somewhat anxious and confused though no significant behavioral problems and no other. For now continue treatment. We' ll continue to attempt to reach patient's to get further information Justification for Cont. Inpt. At this time patient will decompensate if place to the lower level of care Discharge Planning Probable return home with Request HC Surrog/Guard Advoc?: Yes Problem Qualifiers (1) Vascular dementia: Qualified Codes: F01.51 - Vascular dementia with behavioral disturbance Jesse Amado MD Jan 31, 2017 11:12
[2017-01-31] MEDS ORDERED: ZIPR40 PO (12:50)
[2017-01-31] MEDS ORDERED: CLON.5 PO (12:50)
[2017-01-31] MEDS ORDERED: ATOR20TA15 PO (12:50)
[2017-01-31] MEDS ORDERED: APIX2.5T PO (12:50)
[2017-01-31] MEDS ORDERED: COZA25TA PO (12:50)
[2017-01-31] MEDS ORDERED: AZIT250T3 PO (12:50)
[2017-01-31] MEDS ORDERED: MIRTA15 PO (12:50)
[2017-01-31] MEDS ORDERED: METO-309 PO (12:50)
[2017-01-31] MEDS ORDERED: FAMO20TA2 PO (12:50)
--- NOTE | 2017-01-31 12:54 | HHI.DS ---
Psychiatry Discharge Summary Inpatient Psychiatric care?: Yes Advance Directive: Yes Reason Not Provided: NOT WITH PATIENT Mental Health AdvanceDirective: No Health Care Proxy: No Admission Admission Date Jan 29, 2017 at 23:45 Admission Diagnosis: (1) Vascular dementia ICD Code: F01.50 - Vascular dementia without behavioral disturbance (2) DEMENTIA IN OTH DISEASES CLASSD ELSWHR W BEHAVIORAL DISTURB ICD Code: F02.81 - DEMENTIA IN OTH DISEASES CLASSD ELSWHR W BEHAVIORAL DISTURB Brief History He should is a 76-year-old white male who comes to the ED under a [employer] act signed by Lorie Maloney D.O. dated 01/29/17 11:36 PM stating depression patient up here early had undergone at his house he has a gun at home and with his gun today and threatened to shoot everyone that comes into his home patient seen screened in the ED urine toxicology positive for benzodiazepines. At the present time patient sitting quietly in his chair in the day room nurse Erasto present throughout the session. Patient is alert white male appears stated age , he is oriented to person somewhat vague initially about what hospital this is and its location he states he was at home. He states he does have permits for weapons. That he was unloading a weapon in anticipation of going to a dinner at of family members house today. He denies any suicidality homicidality voices or visions. He denies having any harmful f thoughts towards his . 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 Leading to some changes in his vocalization, and having significant visual problems in his left eye. Review of EMR it appears patient was hospitalized here 08/22/15 through under visit [id number] under Dr. Basilio Pena with diagnosis of major depression. He was discharged back home with that. It is unclear if he had any further psychiatric contact or treatment since then. Though reviewing the medical reconciliation various psychotropic medications documented. He denies any alcohol or drug use. States he had his last drink a number of years ago. Though he denies any misuse of alcohol or other drugs. He has been for about 40 years this the second marriage for both of them. Their adult children by each relationship. In any event at this time was be for may be construed as a sequelae to his multiple CVAs as a vascular type dementia. Though he is fairly well oriented. He does have a history of depression that needs to be taken into consideration also. At this time we will continue his medications per the EMR. Will attempt to reach patient's to get further information about this gentleman. He is a he has served in both the [employer] and [employer]. He denies any physical or sexual abuse. Denies any mental health history in his family of origin 01/30/17 - second opinion Patient is a 69-year-old man who denies any past psychiatric history who was brought on the [employer] act for [employer] patient with increasing aggressive behavior at taken to shoot people at his home. Patient found participating activity group today was, cooperative interview. Patient states that there was a person who came to his home who was "for people who have had strokes" and states that his was afraid of him having a gun. He had had 4 strokes in the past in the past 4 years. Patient reports he was taking the bullets out of his gun yesterday when the "lady told me that my is afraid of May with a gun". Patient states that he has a license to carry will this firearm and denies having threatened anyone oral intention to hurt his nor anyone else. Patient states that his situation at home has been good and had planned about a case to visit his aunt in [place]. Patient denies any mood or psychotic symptoms at this time.. Patient noted be irritable with interviewer and requesting to be discharged home. Tobacco Use In Past 30 Days: 5 or More Cigarettes/Day Alcohol Use: Never Hospital Course Met today with patient's and patient and nurse Erasto, verifies the fact that there is no untoward behaviors with a firearm prior to his hospitalization. He feels comfortable with him coming home, she is aware of the cognitive and behavioral changes have occurred with his multiple CVAs. Patient continues to show good orientation for himself. The affectionately average others obvious and their interaction. We did discuss the presence of a firearm in his house. I recommend that the surrender that to the police today. Considering patient's cognitive changes emotional changes lability with her strokes feel this to higher risk for something untoward to happen. Thus patient will be discharged today to his Rx 1 month to follow-up with her PCP in the neurologist Results Blood Pressure 181 / 81 Vital Signs Date Time Temp Pulse Resp B/P (MAP) Pulse Ox O2 Delivery O2 Flow Rate FiO2 01/31/17 05:37 97.5 70 16 181/81 (114) 97 01/29/17 23:15 Room Air Laboratory Tests Test 01/29/17 17:10 01/29/17 17:50 01/30/17 11:33 01/31/17 08:35 Urine Protein 30 mg/dL (NEG-TRACE) Urine Benzodiazepines Screen POS (NEG) Red Blood Count 3.46 MIL/MM3 (4.50-5.90) Hemoglobin 10.9 GM/DL (13.0-17.0) Hematocrit 32.8 % (39.0-51.0) Platelet Count 135 TH/MM3 (150-450) Monocytes (%) (Auto) 9.1 % (0.0-8.0) Eosinophils (%) (Auto) 6.5 % (0.0-4.0) Eosinophils # (Auto) 0.5 TH/MM3 (0-0.4) Blood Urea Nitrogen 32 MG/DL (7-18) 31 MG/DL (7-18) 27 MG/DL (7-18) Creatinine 1.95 MG/DL (0.60-1.30) 1.69 MG/DL (0.60-1.30) 1.70 MG/DL (0.60-1.30) Total Protein 8.5 GM/DL (6.4-8.2) Alkaline Phosphatase 120 U/L (45-117) Total Bilirubin 1.2 MG/DL (0.2-1.0) Estimat Glomerular Filtration Rate 34 ML/MIN (>89) 40 ML/MIN (>89) 39 ML/MIN (>89) B-Type Natriuretic Peptide 522 PG/ML (0-100) Random Glucose 142 MG/DL (74-106) 211 MG/DL (74-106) HDL Cholesterol 67.6 MG/DL (40.0-60.0) Laboratory Results Test 01/30/17 11:33 Cholesterol Level 125 MG/DL (120-200) HDL Cholesterol 67.6 MG/DL (40.0-60.0) LDL Cholesterol 47 MG/DL (0-99) Triglycerides Level 54 MG/DL (42-150) Summary of Procedures None done Imaging Last Impressions Chest X-Ray 01/29/17 0000 Signed Impressions: Service Date/Time: Sunday, January 29, 2017 18:20 - CONCLUSION: 1. Patchy infiltrates in medial right lower lung. 2. 6 mm nodule in the right upper lung. Recommend requesting an archival retrieval of prior chest x-ray in 2011 to see whether this is a new or old finding. Sascha Johnson MD Pending results at discharge: No Medications # of Antipsychotic meds at D/C: 1 Approp Antipsych med options 1 - Minimum of three failed multiple trials of monotherapy. 2 - Documented plan to taper to monotherapy due to previous use of multiple meds OR cross-taper in progress at D/C. 3 - Documentation of augmentation of Clozapine. 4 - Justification other than those listed in allowable values 1-3, document here : Discharge Discharge Date: Jan 31, 2017 Discharge Diagnosis: (1) DEMENTIA IN OTH DISEASES CLASSD ELSWHR W BEHAVIORAL DISTURB Diagnosis: Principal ICD Code: F02.81 - DEMENTIA IN OTH DISEASES CLASSD ELSWHR W BEHAVIORAL DISTURB (2) Vascular dementia Diagnosis: Principal ICD Code: F01.50 - Vascular dementia without behavioral disturbance Pt Condition on Discharge: Stable Discharge Disposition: Discharge Home Discharge Instructions Diet Instructions: As Tolerated, No Restrictions Activities you can perform: Regular-No Restrictions Scheduled Appointment: follow-up PCP and neurologist this week Discharge Time > 30 minutes Mental Status Examination Appearance: Appropriate Consciousness: Alert Orientation: Person, Place (somewhat confusing thinking was in [place]), Date/ Time Motor Activity: Normal gait Speech: Unremarkable Language: Adequate Fund of Knowledge: Adequate Attention and Concentration: Adequate Memory: Unremarkable (fair) Mood: Irritable (loudly) Affect: Irritable Thought Process & Associations: Circumstantial, Tangential Thought Content: Appropriate Hallucination Type: None Delusion Type: None (denies denies) Suicidal Ideation: No (denies) Suicidal Plan: No (denies) Suicidal Intention: No (denies) Homicidal Ideation: No Homicidal Plan: No Homicidal Intention: No Insight: Poor Judgment: Poor Discharge/Advance Care Plan Health Problems: (1) DEMENTIA IN OTH DISEASES CLASSD ELSWHR W BEHAVIORAL DISTURB (2) Vascular dementia Goals to promote your health * To prevent worsening of your condition and complications * To maintain your health at the optimal level Directions to meet your goals Take your medications as prescribed Follow your dietary instruction Follow activity as directed Keep your appointments as scheduled Take your immunizations and boosters as scheduled If your symptoms worsen call your PCP, if no PCP go to Urgent Care Center or Emergency Room For 30/09 questions related to your inpatient stay or results of tests pending at discharge, please contact Dr. Jesse Amado at Smoking is Dangerous to Your Health. Avoid second hand smoking Problem Qualifiers (1) Vascular dementia: Qualified Codes: F01.51 - Vascular dementia with behavioral disturbance Jesse Amado MD Jan 31, 2017 12:54
[2017-01-31 16:46] LABS: HEMOGLOBIN A1a 1.2 %; HEMOGLOBIN A1b 1.5 %; HEMOGLOBIN LA1C 2.7 %; HEMOGLOBIN P3 5.7 %
== END 2017-01-31 16:00 | disposition home or self-care (01) | DRG 884 ==
LOC: NEPE 17:27 → NEDA 23:45 → H250 01-30 00:25
PROVIDERS: ADMIT Psychiatry & Neurology Psychiatry; ATTEND Psychiatry & Neurology Psychiatry
DX: F01.51 Vascular dementia, unspecified severity, with behavioral disturbance (principal); J18.1 Lobar pneumonia, unspecified organism; I48.91 Unspecified atrial fibrillation; E78.5 Hyperlipidemia, unspecified; Z86.73 Personal history of transient ischemic attack (TIA), and cerebral infarction without residual deficits; F17.210 Nicotine dependence, cigarettes, uncomplicated; I12.9 Hypertensive chronic kidney disease with stage 1 through stage 4 chronic kidney disease, or unspecified chronic kidney disease; N18.9 Chronic kidney disease, unspecified; R91.1 Solitary pulmonary nodule; Z79.02 Long term (current) use of antithrombotics/antiplatelets; I25.10 Atherosclerotic heart disease of native coronary artery without angina pectoris; M19.90 Unspecified osteoarthritis, unspecified site; Z95.1 Presence of aortocoronary bypass graft; K21.9 Gastro-esophageal reflux disease without esophagitis
CPT/HCPCS: 71010; 80048; 80053; 80061; 80307; 81001; 83036; 83880; 85025; 87040; 99285; Q0163